=== PATIENT | female | born 1960 | race African-American/Black ===

== ENCOUNTER 2019-11-04 02:26 | Emergency (ER) | payer OTHER ==
[~2019-11-04] VITALS: Ht 165.1 cm; Wt 93.0 kg
[2019-11-04] MEDS ORDERED: NEURONTIN300 MG PO (02:39)
[2019-11-04] MEDS ORDERED: HYDROCHLOROTHIA25 M1 PO (02:39)
[2019-11-04] MEDS ORDERED: LOVASTATIN 20 M20 MG PO (02:40)
[2019-11-04] MEDS ORDERED: HYDROXYZINE HCL25 M2 PO (02:40)
[2019-11-04] MEDS ORDERED: FLEXERIL PO (02:40)
[2019-11-04] MEDS ORDERED: CLINDAMYCIN HC300 MG PO (03:05)
[2019-11-04] MEDS ORDERED: TYLENOL WITH CO1 TA1 PO (03:05)
[2019-11-04 03:30] VITALS: BP 144/103
== END 2019-11-04 03:30 | disposition home or self-care (01) ==
LOC: ER 02:26
DX: S02.5XXA Fracture of tooth (traumatic), initial encounter for closed fracture (principal); I10 Essential (primary) hypertension; M79.7 Fibromyalgia; F17.220 Nicotine dependence, chewing tobacco, uncomplicated; Z88.0 Allergy status to penicillin; Z88.6 Allergy status to analgesic agent; Z88.5 Allergy status to narcotic agent; X58.XXXA Exposure to other specified factors, initial encounter; Y93.89 Activity, other specified; Y92.89 Other specified places as the place of occurrence of the external cause; Y99.8 Other external cause status

== ENCOUNTER 2019-12-10 14:55 | Emergency (ER) | payer OTHER ==
[~2019-12-10] VITALS: Ht 167.6 cm; Wt 93.0 kg
[~2019-12-10 14:55] MED LIST: CLINDAMYCIN HC300 MG PO; FLEXERIL PO; HYDROCHLOROTHIA25 M1 PO; HYDROXYZINE HCL25 M2 PO; LOVASTATIN 20 M20 MG PO; NEURONTIN300 MG PO; TYLENOL WITH CO1 TA1 PO
[2019-12-10 15:21] LABS: ABSOLUTE NEUTROPHILS 2.9 thou/uL (1.4-8.2); EOSINOPHILS 2.4 % (0.0-3.0); HEMATOCRIT 37.7 % (37.0-47.0); HEMOGLOBIN 13.3 gm/dL (12.0-15.0); LYMPHOCYTES 49.3 % (24.0-44.0); MCH 30.2 pg (26.0-34.0); MCHC 35.4 g/dL (28.0-37.0); MCV 85.2 fL (80.0-100.0); MONOCYTES 10.3 % (1.0-8.0); PLATELET COUNT 343 thou/uL (150-400); RBC 4.42 mil/uL (4.20-5.00); RDW 13.6 % (10.5-14.5)
[2019-12-10 15:37] LABS: ANION GAP 11 mmol/L (7-16); BUN 12 mg/dL (7-18); CALCIUM 9.2 mg/dL (8.5-10.1); CHLORIDE 102 mmol/L (98-107); CO2 24 mmol/L (21-32); CREATININE 1.2 mg/dL (0.6-1.0); GLUCOSE 118 mg/dL (74-106); SODIUM 137 mmol/L (136-145); TROPONIN-I <0.06 ng/mL (<0.06)
[2019-12-10 15:38] LABS: POTASSIUM 2.8 mmol/L (3.5-5.1)
[2019-12-10 18:11] VITALS: BP 144/94
--- NOTE | 2019-12-11 09:24 | EKG ---
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 : 1960 Requested By: Onur Braun Order Number: [id number] MD: Andrea Chu Measurements Intervals [place] Rate: 79 P: 35 MD: 144 QRS: -11 QRSD: 91 T: 13 QT: 434 QTc: 498 Interpretive Statements Sinus rhythm Poor R wave progression Borderline prolonged QT interval Compared to ECG 12/10/2019 14:54:57 T-wave abnormality no longer present Electronically Signed On 12-11-2019 9:24:22 CDT by Andrea Chu [email or web address] <ELECTRONICALLY SIGNED> By: Andrea Chu MD, [facility] 12/11/19 0924 1526 1526 Andrea Chu MD, [facility] /EPI
--- NOTE | 2019-12-11 09:24 | EKG ---
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: [employer] : 1960 Requested By: Onur Braun Order Number: [id number] MD: Andrea Chu Measurements Intervals [place] Rate: 94 P: 42 FL: 138 QRS: -11 QRSD: 87 T: -24 QT: 388 QTc: 486 Interpretive Statements Sinus rhythm Poor R wave progression Nonspecific T abnormalities, inferior leads Prolonged QT interval No previous ECG available for comparison Electronically Signed On 12-11-2019 9:23:58 CDT by Andrea Chu [email or web address] <ELECTRONICALLY SIGNED> By: Andrea Chu MD, FAC 12/11/19922 1454 145 Andrea Chu MD, [facility] /EPI
== END 2019-12-10 18:11 | disposition home or self-care (01) ==
LOC: ER 14:55
PROVIDERS: Emergency Medicine
DX: R07.2 Precordial pain (principal); I10 Essential (primary) hypertension; F17.200 Nicotine dependence, unspecified, uncomplicated; Z79.899 Other long term (current) drug therapy; Z88.0 Allergy status to penicillin; Z88.5 Allergy status to narcotic agent

== ENCOUNTER 2019-12-21 00:11 | Emergency (ER) | payer OTHER ==
[~2019-12-21] VITALS: Ht 167.6 cm; Wt 97.5 kg
[2019-12-21] MEDS ORDERED: CYCLOBENZAPRINE10 MG PO (00:30)
[2019-12-21 01:04] LABS: ABSOLUTE NEUTROPHILS 3.2 thou/uL (1.4-8.2); BASOPHILS 1.4 % (0.0-2.0); LYMPHOCYTES 43.3 % (24.0-44.0); MCH 30.4 pg (26.0-34.0); MCV 86.7 fL (80.0-100.0); MONOCYTES 9.7 % (1.0-8.0); PLATELET COUNT 344 thou/uL (150-400); POLYS 43.6 % (36.0-66.0); RBC 4.27 mil/uL (4.20-5.00); WBC 7.3 thou/uL (4.0-11.0)
[2019-12-21 01:08] LABS: CALCIUM 9.5 mg/dL (8.5-10.1); CREATININE 1.2 mg/dL (0.6-1.0); POTASSIUM 3.3 mmol/L (3.5-5.1)
[2019-12-21 01:16] LABS: TROPONIN-I 0.09 ng/mL (<0.06)
[2019-12-21 03:39] VITALS: BP 146/94
[2019-12-21] MEDS ORDERED: ORPHENADRINE C100 M2 PO (03:46)
--- NOTE | 2019-12-21 07:44 | EKG ---
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: [facility] : 1960 Requested By: Hanane Hurtado Order Number: [id number] MD: Andrea Chu Measurements Intervals [place] Rate: 93 P: 34 SD: 140 QRS: -5 QRSD: 82 T: 89 QT: 343 QTc: 427 Interpretive Statements Sinus rhythm Nonspecific T abnormalities, lateral leads Compared to ECG 12/10/2019 15:26:53 T-wave abnormality now present Electronically Signed On 12-21-2019 7:44:40 CDT by Andrea Chu [email or web address] <ELECTRONICALLY SIGNED> By: Andrea Chu MD, FAC 12/21/19 0744 0018 0018 Andrea Chu MD, [facility] /EPI
== END 2019-12-21 03:57 | disposition home or self-care (01) ==
LOC: ER 00:11
PROVIDERS: Emergency Medicine
DX: R07.89 Other chest pain (principal); R79.89 Other specified abnormal findings of blood chemistry; R20.2 Paresthesia of skin; R20.0 Anesthesia of skin; I10 Essential (primary) hypertension; M79.7 Fibromyalgia; F17.220 Nicotine dependence, chewing tobacco, uncomplicated; Z79.899 Other long term (current) drug therapy; Z88.6 Allergy status to analgesic agent; Z88.0 Allergy status to penicillin; Z88.8 Allergy status to other drugs, medicaments and biological substances

== ENCOUNTER 2019-12-24 04:10 | Inpatient (IN) | payer OTHER ==
[~2019-12-24] VITALS: Ht 167.6 cm; Wt 93.0 kg
[~2019-12-24 04:10] MED LIST changes: +CYCLOBENZAPRINE10 MG PO; +ORPHENADRINE C100 M2 PO
[2019-12-24 04:12] VITALS: BP 145/85
[2019-12-24 04:40] LABS: HEMATOCRIT 38.6 % (37.0-47.0); HEMOGLOBIN 13.5 gm/dL (12.0-15.0); MCH 30.1 pg (26.0-34.0); MCHC 34.9 g/dL (28.0-37.0); MCV 86.5 fL (80.0-100.0); PLATELET COUNT 372 thou/uL (150-400); RBC 4.47 mil/uL (4.20-5.00); RDW 13.7 % (10.5-14.5); WBC 7.7 thou/uL (4.0-11.0)
[2019-12-24 04:47] LABS: CALCIUM 9.5 mg/dL (8.5-10.1); POTASSIUM 3.4 mmol/L (3.5-5.1)
[2019-12-24 04:56] LABS: TROPONIN-I 0.06 ng/mL (<0.06)
[2019-12-24 05:42] LABS: ABSOLUTE NEUTROPHILS 2.5 thou/uL (1.4-8.2); ATYPICAL LYMPHS 5 %; LARGE PLATELETS FEW
[2019-12-24 08:11] VITALS: BP 135/92
[2019-12-24 08:28] VITALS: BP 135/92
[2019-12-24 08:30] VITALS: BP 117/84
[2019-12-24] MEDS ORDERED: LIDODERM1 EACH TOP (08:56)
[2019-12-24] MEDS ORDERED: ADVIL200 M3 PO (08:56)
[2019-12-24] MEDS ORDERED: PROTONIX40 M2 PO (08:57)
[2019-12-24 09:18] VITALS: BP 135/92
[2019-12-24 10:05] VITALS: BP 117/84
--- NOTE | 2019-12-24 11:07 | NUR ---
PT CARE ASSUMED AT 0830. ASSESSMENT CHARTED. MEDICATION CHARTED. PT TO BE DISCHARGED TO HOME. JONES LETTER SIGNED. TELEMETRY D/C'D. LAC IV D/C'D. PAPERWORK SIGNED.
--- NOTE | 2019-12-24 11:55 | EKG ---
[facility] [place] [address] ELECTROCARDIOGRAM REPORT Name: SETH BERRY Room #: [address] 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[facility] : 1960 Requested By: Onur Braun Order Number: [id number] MD: Andrea Chu Measurements Intervals [place] Rate: 103 P: 52 RI: 136 QRS: 3 QRSD: 84 T: 22 QT: 334 QTc: 437 Interpretive Statements Sinus tachycardia Nonspecific ST and T wave abnormality Compared to ECG 12/21/2019 00:18:54 No significant change was found Electronically Signed On 12-24-2019 11:55:38 CDT by Andrea Chu [email or web address] <ELECTRONICALLY SIGNED> By: Andrea Chu MD, [facility] 12/24/19 1155 0408 0408 Andrea Chu MD, [facility] /EPI
== END 2019-12-24 11:00 | disposition home or self-care (01) | DRG 206 ==
LOC: ER 04:10 → 2N 08:52
PROVIDERS: Emergency Medicine; ADMIT Internal Medicine; ATTEND Internal Medicine
DX: M94.0 Chondrocostal junction syndrome [Tietze] (principal); I10 Essential (primary) hypertension; F17.220 Nicotine dependence, chewing tobacco, uncomplicated; R47.02 Dysphasia; Z88.6 Allergy status to analgesic agent; Z88.0 Allergy status to penicillin; Z88.8 Allergy status to other drugs, medicaments and biological substances; Z79.899 Other long term (current) drug therapy
CPT/HCPCS: 10194

== ENCOUNTER 2020-04-02 05:06 | Emergency (ER) | payer OTHER ==
[~2020-04-02] VITALS: Ht 167.6 cm; Wt 93.0 kg
[~2020-04-02 05:06] MED LIST changes: +ADVIL200 M3 PO; +LIDODERM1 EACH TOP; +PROTONIX40 M2 PO
[2020-04-02 05:48] LABS: HEMATOCRIT 37.8 % (37.0-47.0); HEMOGLOBIN 12.9 gm/dL (12.0-15.0); MCH 29.3 pg (26.0-34.0); MCHC 34.1 g/dL (28.0-37.0); PLATELET COUNT 349 thou/uL (150-400); WBC 7.3 thou/uL (4.0-11.0)
[2020-04-02 05:49] LABS: ANION GAP 10 mmol/L (7-16); BUN 15 mg/dL (7-18); CALCIUM 9.5 mg/dL (8.5-10.1); CHLORIDE 102 mmol/L (98-107); CO2 26 mmol/L (21-32); CREATININE 1.3 mg/dL (0.6-1.0); GLUCOSE 122 mg/dL (74-106); POTASSIUM 3.1 mmol/L (3.5-5.1); SODIUM 138 mmol/L (136-145)
[2020-04-02 06:00] LABS: ALBUMIN 3.5 g/dL (3.4-5.0); DIRECT BILIRUBIN < 0.1 mg/dL (<0.1-0.2); LIPASE 73 U/L (73-393); SGOT 19 U/L (15-37); SGPT 24 U/L (30-65); TOTAL BILIRUBIN 0.5 mg/dL (0.2-1.0); TOTAL PROTEIN 7.8 g/dL (6.4-8.2); TROPONIN-I <0.06 ng/mL (<0.06)
--- NOTE | 2020-04-02 07:23 | EKG ---
[facility] [address] [place] [address] ELECTROCARDIOGRAM REPORT Name: SETH BERRY Room #: JUST[facility]#: [id number] Admission: 04/02/20 Attend Phys: Discharge: Date of : 64 Report #: [id number] <ELECTRONICALLY SIGNED> By: Arnoldo Garcia MD, FACC 04/02/20 0723 7 7 Arnoldo Garcia MD, FACC /EPI
[2020-04-02] MEDS ORDERED: LIDODERM1 EACH TOP (08:20)
[2020-04-02] MEDS ORDERED: PEPCID20 MG PO (08:20)
[2020-04-02 08:31] VITALS: BP 131/86
[2020-04-02 11:10] LABS: ABSOLUTE NEUTROPHILS 2.3 thou/uL (1.4-8.2); ATYPICAL LYMPHS 2 %
--- NOTE | 2020-04-02 15:06 | EKG ---
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: : 1960 Requested By: Jemal Daniels Order Number: [id number] MD: Arnoldo Garcia Measurements Intervals [place] Rate: 110 P: 55 NM: 133 QRS: 7 QRSD: 86 T: 7 QT: 379 QTc: 513 Interpretive Statements Sinus tachycardia Prolonged QT interval Compared to ECG 12/24/2019 04:08:01 Prolonged QT interval now present ST (T wave) deviation no longer present Electronically Signed On 04-02-2020 15:06:06 VICE CHANCELLOR by Arnoldo Garcia [email or web address] <ELECTRONICALLY SIGNED> By: Arnoldo Garcia MD, [facility] 04/02/20 1506 0510 0510 Arnoldo Garcia MD, FACC /EPI
== END 2020-04-02 08:30 | disposition home or self-care (01) ==
LOC: ER 05:06
PROVIDERS: Emergency Medicine
DX: R07.89 Other chest pain (principal); F41.9 Anxiety disorder, unspecified; R00.2 Palpitations; R19.7 Diarrhea, unspecified; R11.0 Nausea; M79.7 Fibromyalgia; I10 Essential (primary) hypertension; Z79.899 Other long term (current) drug therapy; Z88.6 Allergy status to analgesic agent; Z88.0 Allergy status to penicillin; Z88.8 Allergy status to other drugs, medicaments and biological substances; F17.220 Nicotine dependence, chewing tobacco, uncomplicated

== ENCOUNTER 2020-11-01 07:42 | Emergency (ER) | payer OTHER ==
[~2020-11-01] VITALS: Ht 167.6 cm; Wt 93.0 kg
[~2020-11-01 07:42] MED LIST changes: +PEPCID20 MG PO
[2020-11-01 08:21] LABS: ABSOLUTE NEUTROPHILS 2.7 thou/uL (1.4-8.2); EOSINOPHILS 2.4 % (0.0-3.0); HEMATOCRIT 36.9 % (37.0-47.0); HEMOGLOBIN 12.8 gm/dL (12.0-15.0); LYMPHOCYTES 38.4 % (24.0-44.0); MCH 29.6 pg (26.0-34.0); MCHC 34.7 g/dL (28.0-37.0); MCV 85.2 fL (80.0-100.0); MONOCYTES 11.1 % (1.0-8.0); PLATELET COUNT 323 thou/uL (150-400); POLYS 47.1 % (36.0-66.0); RBC 4.32 mil/uL (4.20-5.00); RDW 14.4 % (10.5-14.5); WBC 5.6 thou/uL (4.0-11.0)
[2020-11-01 08:31] LABS: ANION GAP 9 mmol/L (7-16); BUN 16 mg/dL (7-18); CALCIUM 9.3 mg/dL (8.5-10.1); CHLORIDE 103 mmol/L (98-107); CO2 29 mmol/L (21-32); CREATININE 1.2 mg/dL (0.6-1.0); GLUCOSE 125 mg/dL (74-106); POTASSIUM 3.3 mmol/L (3.5-5.1); SODIUM 141 mmol/L (136-145)
[2020-11-01 08:37] LABS: ALBUMIN 3.2 g/dL (3.4-5.0); DIRECT BILIRUBIN < 0.1 mg/dL (<0.1-0.2); SGOT 22 U/L (15-37); SGPT 32 U/L (14-59); TOTAL BILIRUBIN 0.2 mg/dL (0.2-1.0); TOTAL PROTEIN 7.4 g/dL (6.4-8.2)
[2020-11-01 09:59] LABS: URINE BILIRUBIN NEGATIVE (Negative); URINE BLOOD NEGATIVE (Negative); URINE CLARITY CLEAR; URINE COLOR YELLOW; URINE GLUCOSE-RANDOM* NEGATIVE (Negative); URINE KETONES NEGATIVE (Negative); URINE LEUKOCYTES-REFLEX NEGATIVE (Negative); URINE NITRITE-REFLEX NEGATIVE (Negative); URINE PROTEIN (DIPSTICK) NEGATIVE (Negative); URINE UROBILINOGEN 0.2 E.U./dl (0.2-1.0)
[2020-11-01] MEDS ORDERED: ZOFRAN ODT4 MG PO (11:12)
[2020-11-01 11:45] VITALS: BP 133/93
== END 2020-11-01 11:45 | disposition home or self-care (01) ==
LOC: ER 07:42
PROVIDERS: Emergency Medicine
DX: R11.0 Nausea (principal); R19.7 Diarrhea, unspecified; I10 Essential (primary) hypertension; F41.9 Anxiety disorder, unspecified; M79.7 Fibromyalgia; Z90.710 Acquired absence of both cervix and uterus; Z79.899 Other long term (current) drug therapy; Z88.0 Allergy status to penicillin; Z72.0 Tobacco use